=== PATIENT | female | born 1995 ===

== ENCOUNTER 2017-05-23 19:04 | Emergency (ER) | payer OTHER ==
[2017-05-23 20:32] VITALS: BP 103/58
--- NOTE | 2017-05-23 20:33 | UC ---
FLU HPI - HPI Summary HPI Summary: Pt presents with sinus congestion and body aches that began this morning. She also had a small amount of blood on the qtip when cleaning her ears this morning. She is a student at [employer] and would like to be tested for the flu. Did not get her flu shot. Denies chills, cough, sore throat, SOB, chest pain, abdominal pain, n/v/d/c. - History of Current Complaint Chief Complaint: UCGeneralIllness Stated Complaint: SINUS CONGESTION,PAIN Time Seen by Provider: 05/23/17 20:33 Hx Obtained From: Patient Hx Last Menstrual Period: 04/15/17 Onset/Duration: Sudden Onset Severity Currently: Mild Severity Initially: Mild Pain Intensity: 2 Pain Scale Used: 0-10 Numeric - Allergy/Home Medications Allergies/Adverse Reactions: Allergies Allergy/AdvReac Type Severity Reaction Status Date / Time No Known Allergies Allergy Verified 05/23/17 20:24 Home Medications: Home Medications Escitalopram Oxalate [Lexapro] 7.5 mg PO DAILY 05/23/17 [History Confirmed 05/23] Ibuprofen TAB* [Motrin TAB* 400 MG] 400 mg PO Q6H PRN 05/23/17 [History Confirmed 05/23/17] Levonorgestrel (Iud) [Mirena IUD] 20 mcg IU DAILY 05/23/17 [History Confirmed ] buPROPion TAB* [Wellbutrin TAB*] 150 mg PO DAILY 05/23/17 [History Confirmed ] PMH/Surg Hx/FS Hx/Imm Hx Previously Healthy: Yes Psychological History: Anxiety, Depression - Surgical History Surgical History: Yes Surgery Procedure, Year, and Place: T&A 1998 - Family History Known Family History: Positive: None - Social History Occupation: Student Lives: Dormitory/Roommates Alcohol Use: None Substance Use Type: None Smoking Status (MU): Never Smoked Tobacco Review of Systems Constitutional: Negative Skin: Negative Eyes: Negative ENT: Sinus Congestion Respiratory: Negative Cardiovascular: Negative Gastrointestinal: Negative Musculoskeletal: Negative Neurological: Negative Psychological: Negative All Other Systems Reviewed And Are Negative: Yes Physical Exam Triage Information Reviewed: Yes Appearance: Well-Appearing, No Pain Distress, Well-Nourished Vital Signs: Initial Vital Signs Temp 99 F 05/23/17 20:26 Pulse 85 05/23/17 20:26 Resp 16 05/23/17 20:26 BP 103/58 05/23/17 20:26 Pulse Ox 100 05/23/17 20:26 Vital Signs Reviewed: Yes Eyes: Positive: Conjunctiva Clear. Negative: Conjunctiva Inflamed, Discharge ENT: Positive: Hearing grossly normal, Pharynx normal, Nasal congestion, TMs normal, Uvula midline, Other - 1mm scab on the inner tragus - likely the source of her bleeding this morning.. Negative: Pharyngeal erythema, Nasal drainage, TM bulging, TM dull, TM red, Tonsillar swelling, Tonsillar exudate, Hoarse voice , Sinus tenderness Neck: Positive: Supple, Nontender, No Lymphadenopathy Respiratory: Positive: Lungs clear, Normal breath sounds, No respiratory distress, No accessory muscle use Cardiovascular: Positive: RRR, No Murmur, Pulses Normal Neurological: Positive: Alert Psychological: Positive: Age Appropriate Behavior Skin: Negative: rashes Flu Course/Dx - Course Course Of Treatment: POC flu negative. Given that her symptoms just began this morning - I advised she rest, drink fluids, and try OTC mucinex and ibuprofen as needed. - Differential Dx/Diagnosis Provider Diagnoses: Viral sinusitis Discharge - Discharge Plan Condition: Stable Disposition: HOME Patient Education Materials: Rhinosinusitis (DC) Referrals: No Primary Care Phys,NOPCP [Primary Care Provider] - Additional Instructions: If you develop a fever, shortness of breath, chest pain, new or worsening symptoms - please call your PCP or go to the ED. 1) May try OTC mucinex twice a day 2) Tylenol or ibuprofen as needed for any fever or discomfort.
== END 2017-05-23 21:30 | disposition home or self-care (01) ==
LOC: UCEAST 19:04
DX: J32.9 Chronic sinusitis, unspecified (principal); B97.89 Other viral agents as the cause of diseases classified elsewhere; F41.8 Other specified anxiety disorders
CPT/HCPCS: 87502; 99201; G0463